=== PATIENT | female | born 1995 | race Native Hawaiian/Other Pacific Islander ===

== ENCOUNTER 2017-10-13 23:39 | Emergency (ER) | payer OTHER ==
[~2017-10-13] VITALS: Ht 157.5 cm; Wt 49.9 kg
== END 2017-10-14 01:40 | disposition left against medical advice (07) ==
LOC: ED 23:39
DX: O72.1 Other immediate postpartum hemorrhage (principal)
CPT/HCPCS: 99281

== ENCOUNTER 2021-06-28 13:07 | Emergency (ER) | payer OTHER ==
[~2021-06-28] VITALS: Ht 160 cm; Wt 49.9 kg
[2021-06-28 13:14] VITALS: TEMP 98.7
[2021-06-28 17:32] VITALS: BP 128/85
== END 2021-06-28 17:32 | disposition home or self-care (01) ==
LOC: ED 13:07
DX: S06.0X0D Concussion without loss of consciousness, subsequent encounter (principal); S13.4XXD Sprain of ligaments of cervical spine, subsequent encounter; T14.8XXD Other injury of unspecified body region, subsequent encounter; W17.2XXD Fall into hole, subsequent encounter; Y92.89 Other specified places as the place of occurrence of the external cause
CPT/HCPCS: 81000; 81025; 99283

== ENCOUNTER 2021-07-07 16:03 | Emergency (ER) | payer OTHER ==
[~2021-07-07] VITALS: Ht 160 cm; Wt 49.9 kg
[2021-07-07 16:10] VITALS: BP 111/74; TEMP 98
== END 2021-07-07 18:36 | disposition home or self-care (01) ==
LOC: ED 16:03
DX: R10.2 Pelvic and perineal pain (principal); N30.80 Other cystitis without hematuria
CPT/HCPCS: 81000; 81002; 99283

== ENCOUNTER 2021-07-15 05:05 | Emergency (ER) | payer OTHER ==
[~2021-07-15] VITALS: Ht 160 cm; Wt 49.9 kg
[2021-07-15 05:10] VITALS: TEMP 98.8
[2021-07-15 06:10] LABS: PLATELET COUNT 274 K/uL (152-353)
[2021-07-15 06:18] LABS: POTASSIUM 4.3 mmol/L (3.6-5.2)
[2021-07-15 07:52] VITALS: BP 104/51
== END 2021-07-15 07:57 | disposition home or self-care (01) ==
LOC: ED 05:05
PROVIDERS: Family Medicine
DX: K21.9 Gastro-esophageal reflux disease without esophagitis (principal)
CPT/HCPCS: 36415; 80053; 81000; 85027; 96360; 96374; 99284; J2405; Q9963